=== PATIENT | male | born 1985 | race Caucasian/White ===

== ENCOUNTER 2021-05-02 07:13 | Emergency (ER) | payer OTHER ==
[~2021-05-02] VITALS: Ht 167.6 cm; Wt 74.8 kg
[2021-05-02 07:22] VITALS: BP 158/97
[2021-05-02] MEDS ORDERED: ACETAMINOPHEN EXTRA STRENGTH 500 MG TAB PO ONE (07:45)
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
--- NOTE | 2021-05-02 08:21 | NUR ---
Patient discharged with v/s stable. Written and verbal after care instructions ABOUT [employer] given and explained. Patient verbalized understanding. Ambulatory with steady gait. All questions addressed prior to discharge. Advised to follow up with PMD. PT RELEASED TO CUSTODY WITH BINDU
== END 2021-05-02 08:21 ==
LOC: MED 07:13
DX: S43.102A Unspecified dislocation of left acromioclavicular joint, initial encounter (principal); M19.011 Primary osteoarthritis, right shoulder; Z02.89 Encounter for other administrative examinations; V89.2XXA Person injured in unspecified motor-vehicle accident, traffic, initial encounter; Y93.89 Activity, other specified; Y92.89 Other specified places as the place of occurrence of the external cause; Y99.8 Other external cause status
CPT/HCPCS: 73020; 99283